=== PATIENT | female | born 1975 | race Caucasian/White ===

== ENCOUNTER 2017-10-03 14:30 | Emergency (ER) | payer MEDICARE, MEDICAID ==
[2017-10-03 15:04] VITALS: BP 158/86; PULSE 95; RESP 18; TEMP 98.1; O2SAT 98
[2017-10-03] MEDS ORDERED: METF1000 PO ×2 (15:42→17:09)
[2017-10-03] MEDS ORDERED: AMIT25TA9 PO (15:42)
[2017-10-03] MEDS ORDERED: LABE100T2 PO ×2 (15:42→17:11)
[2017-10-03] MEDS ORDERED: CITA40TA4 PO (15:42)
[2017-10-03] MEDS ORDERED: SODIUM CHLOR 0.9% 1000 ML INJ 1,000 ML IV ONE (15:45)
[2017-10-03] MEDS ORDERED: methylPREDNISolone SOD SUCC 125 MG/2 ML VIAL IV PUSH ONE (15:45)
[2017-10-03] MEDS ORDERED: diphenhydrAMINE HCL 50 MG/ML VIAL IV PUSH ONE (15:45)
[2017-10-03 16:38] LABS: BICARBONATE 26.3 MEQ/L (21.0-32.0); CALCIUM 8.9 MG/DL (8.5-10.1); CREATININE 0.61 MG/DL (0.50-1.00)
--- NOTE | 2017-10-03 18:02 | PD ---
HPI Chief Complaint: Allergic/Adverse Reaction Time Seen by Provider: 15:33 Travel History International Travel<30 days: No Contact w/Intl Traveler<30days: No Traveled to known affect area: No History of Present Illness HPI 42-year-old female history of diabetes most, hypertension, who presented here with complaints of facial swelling. Patient states she was stung by a wasp on her nose yesterday. She states she was seen at [facility] where they gave her Benadryl and wrote her prescription for prednisone. I told her to follow up if she had any worsening symptoms. Patient also states that she has been out of her metformin for a couple weeks. She is also been off of her labetalol for couple weeks. There are no other complaints at time of examination. She denies any stridor or wheezing or difficulty breathing. PFSH Past Medical History Depression: Yes Diabetes: Yes Patient Takes Glucophage: Yes Hypertension: Yes Tetanus Vaccination: > 5 Years Influenza Vaccination: No ?: Not LMP: 09/25/17 Past Surgical History Section: Yes Tonsillectomy: Yes Social History Alcohol Use: No Tobacco Use: No Substance Use: No Allergies-Medications (Allergen,Severity, Reaction): Coded Allergies: bee venom protein (honey bee) (Verified Allergy, Severe, Anaphylaxis, ) meperidine (Verified Allergy, Severe, Anaphylaxis, 10/03/17) Reported Meds & Prescriptions Reported Meds & Active Scripts Active Labetalol (Labetalol HCl) 100 Mg Tab 100 Mg PO BID 30 Days Metformin (Metformin HCl) 1,000 Mg Tab 1,000 Mg PO BIDPC Reported Citalopram (Citalopram Hydrobromide) 40 Mg Tab 40 Mg PO DAILY Labetalol (Labetalol HCl) 100 Mg Tab 100 Mg PO BID 30 Days Amitriptyline (Amitriptyline HCl) 25 Mg Tab 25 Mg PO HS Review of Systems Except as stated in HPI: all other systems reviewed are Neg Eyes: No: Blurred Vision, Photophobia HENT: No: Headaches, Lightheadedness, Neck Pain Cardiovascular: No: Chest Pain or Discomfort, Palpitations Respiratory: No: Shortness of Breath, Stridor Gastrointestinal: No: Nausea, Vomiting, Abdominal Pain Genitourinary: No: Frequency, Dysuria Musculoskeletal: No: Pain Skin: Positive Hives (Bilateral cheeks), No Rash, No Lesions Neurologic: No: Weakness, Headache Physical Exam Narrative GENERAL: Well-nourished, well-developed patient, in no acute respiratory distress. SKIN: Focused skin assessment warm/dry. HEAD: Normocephalic/atraumatic. EYES: No scleral icterus. No injection or drainage. Patient has some swelling and redness in the infraorbital areas. NECK: Supple, trachea midline. No stridor. CARDIOVASCULAR: Regular rate and rhythm without murmurs, gallops, or rubs. RESPIRATORY: Breath sounds equal bilaterally. No accessory muscle use. NEUROLOGICAL: Awake and alert. Cranial nerves II through XII intact. Motor grossly within normal limits. Five out of 5 muscle strength in all muscle groups. Normal speech. Data Data Last Documented VS Vital Signs Date Time Temp Pulse Resp B/P (MAP) Pulse Ox O2 Delivery O2 Flow Rate FiO2 10/03/17 15:04 98.1 95 18 158/86 (110) 98 Orders Orders Basic Metabolic Panel (Bmp) (10/03/17 15:36) Cath For Specimen (10/03/17 15:36) Iv Access Insert/Monitor (10/03/17 15:36) Ecg Monitoring (10/03/17 15:36) Sodium Chlor 0.9% 1000 Ml Inj (Ns 1000 M (10/03/17 15:45) Diphenhydramine Inj (Benadryl Inj) (10/03/17 15:45) Methylprednisolone So Succ Inj (Solumedr (10/03/17 15:45) Labs Laboratory Tests Test 10/03/17 15:51 Blood Urea Nitrogen 9 MG/DL Creatinine 0.61 MG/DL Random Glucose 226 MG/DL Calcium Level 8.9 MG/DL Sodium Level 135 MEQ/L Potassium Level 4.2 MEQ/L Chloride Level 100 MEQ/L Carbon Dioxide Level 26.3 MEQ/L Anion Gap 9 MEQ/L Estimat Glomerular Filtration Rate 107 ML/MIN MDM Medical Decision Making Medical Screen Exam Complete: Yes Emergency Medical Condition: Yes Differential Diagnosis Anaphylaxis versus allergic reaction versus cellulitis Narrative Course 42-year-old female with history of hypertension, diabetes mellitus, allergies to lasting, presents here with redness and swelling to her face. Patient was seen at [place] last night given Benadryl. She is also given a prescription for prednisone which she did not fill. The patient is a diabetic and says her sugars were 600 yesterday. Blood sugar here is low 200s. She has been given 1 L of IV fluid. I refilled her metformin 1000 mg twice daily prescription. I have also refilled her labetalol 100 mg twice daily prescription for 30 days. She will be given referral to the [facility]. She is instructed to return here if she has any worsening symptoms. Diagnosis Primary Impression: Wasp sting with allergic reaction Additional Impressions: Diabetes mellitus Hypertension Medication refill Referrals: [facility] Additional Instructions: Return if difficulty breathing, swallowing, or any other reason that concerns her. Failure prescription for prednisone. Please note that your blood sugar will be elevated while on the prednisone and should go down afterwards. Med/Other Pt SpecificInfo: Prescription(s) given Scripts Labetalol (Labetalol) 100 Mg Tab 100 MG PO BID for Blood Pressure Management for 30 Days, #60 TAB 0 Refills Prov: Mando Joseph MD 10/03/17 Metformin (Metformin) 1,000 Mg Tab 1000 MG PO BIDPC for Blood Sugar Management, #60 TAB 0 Refills Prov: Mando Joseph MD 10/03/17 Disposition: 01 DISCHARGE HOME Condition: Stable Mando Joseph MD Oct 03, 2017 18:02
[2017-10-03 18:03] VITALS: BP 129/68
== END 2017-10-03 18:17 | disposition home or self-care (01) ==
LOC: NEPC 14:30
DX: T63.461A Toxic effect of venom of wasps, accidental (unintentional), initial encounter (principal); E11.9 Type 2 diabetes mellitus without complications; I10 Essential (primary) hypertension; Z79.84 Long term (current) use of oral hypoglycemic drugs
CPT/HCPCS: 80048; 96361; 96374; 96375; 99284; J1200; J2930; J7030